=== PATIENT | female | born 1945 | race Caucasian/White ===

== ENCOUNTER 2018-05-28 09:51 | Emergency (ER) | payer MEDICARE, MEDICAID ==
[2018-05-28 10:19] VITALS: BMI 41.8
[2018-05-28 10:24] VITALS: TEMP 98.8; O2SAT 99
[2018-05-28 11:15] VITALS: RESP 18
[2018-05-28] MEDS ORDERED: Oxycodone/Acetaminophen 5/325 mg Tab PO STA (11:16)
--- NOTE | 2018-05-28 11:16 | ED PDOC ---
Arrival/HPI - General Chief Complaint: Hip Pain Time Seen by Provider: 05/28/18 10:19 Historian: Patient - History of Present Illness Narrative History of Present Illness (Text): 05/28/18 11:05 A 73 year old female, whose past medical history includes hypertension, presents to the emergency department complaining of injury s/p fall. Patient reports she was at home hanging up her curtains on a high ladder, and fell off, landing on buttock region, and hit head on nearby chair. States afterwards felt pain to left elbow, left side rib pain, back pain, right hip pain, and left-side neck pain. Patient denies any chest pain, left hip pain, lower extremity pain, or any other complaints at this time. Also, patient mentions she is alelrgic to penicillin. Notes she takes medications for hypertension and abdomen, however is uncertain which specific medications. Past Medical History - Provider Review Nursing Documentation Reviewed: Yes - Infectious Disease Hx of Infectious Diseases: None - Reproductive Menopause: No Family/Social History - Physician Review Nursing Documentation Reviewed: Yes Family/Social History: No Known Family HX Allergies/Home Meds Allergies/Adverse Reactions: Allergies Penicillins Allergy (Verified 05/28/18 10:25) RASH Review of Systems - Physician Review All systems were reviewed & negative as marked: Yes - Review of Systems Cardiovascular: absent: Chest Pain Musculoskeletal: Neck Pain (left side), Other (left elbow side, left-side rib pain, no hip pain, no lower extremity pain). absent: Back Pain Physical Exam - Physical Exam Narrative Physical Exam (Text): Gen: VS reviewed, alert, well developed, well nourished, nontoxic, mild distress. ENT: normal pharynx. Eye: EOMI, PERRL. Neck: no JVD, supple, no adenopathy. No mid cervical spinal tenderness. CV: regular rate, regular rhythm, no rubs, no murmur, no gallops, S1, S2, pulses equal and strong. Pulm: no distress, clear to auscultation, no wheeze, no rhonchi, breath sounds equal, no rales. Abd: soft, nontender, no guarding, no rebound, no rigidity, normal bowel sounds. Mild to moderate left lower anterior ribcage tenderness with no bruising. Ext: no edema. focal area bruising to medial left elbow, moderate tenderness to PSIS area. Skin: good color, no rash, no cyanosis. Psych: responds appropriately to questions, normal affect. Neuro: oriented x 3, CN2-12 intact grossly, motor intact, sensation intact. Head: small lump to left parietal scalp region with no active bleeding. Vital Signs Reviewed: Yes Vital Signs Temp Pulse Resp BP Pulse Ox 05/28/18 10:19 98.8 F 86 20 151/89 H 99 Temperature: Afebrile Blood Pressure: Normal Pulse: Regular Respiratory Rate: Normal Appearance: Positive for: Well-Appearing, Non-Toxic, Comfortable Pain Distress: None Mental Status: Positive for: Alert and Oriented X 3 Medical Decision Making ED Course and Treatment: 05/28/18 11:09 Impression: 73 year old female with injuries s/p fall. Plan: -- Head CT -- Lumbar Spinal CT -- Left Elbow X-Ray -- Right Femur X-Ray -- Right Hip X-Ray -- Left Rib X-Ray -- Percocet -- Reassess and disposition Progress Notes: 05/28/18 13:35 patient feels better after analgesic. trauma workup unremarkable and patient stable for discharge. patient will follow up with her pcp. - RAD Interpretation Narrative RAD Interpretations (Text): 05/28/2018 11:[address] IMPRESSION: Normal CT of the Head. Dictator: Melo Blanca MD 05/28/2018 11:[address] IMPRESSION: No fracture. L1-2 central disc herniation. Dictator: Melo Blanca MD - Scribe Statement The provider has reviewed the documentation as recorded by the Julian Shahid Provider Scribe Attestation: All medical record entries made by the Scribe were at my direction and personally dictated by me. I have reviewed the chart and agree that the record accurately reflects my personal performance of the history, physical exam, medical decision making, and the department course for this patient. I have also personally directed, reviewed, and agree with the discharge instructions and disposition. Disposition/Present on Arrival - Present on Arrival Any Indicators Present on Arrival: No History of DVT/PE: No History of Uncontrolled Diabetes: No Urinary Catheter: No History of Decub. Ulcer: No History Surgical Site Infection Following: None - Disposition Have Diagnosis and Disposition been Completed?: Yes Diagnosis: Head injury, Lumbar strain, Multiple contusions Disposition: HOME/ ROUTINE Disposition Time: 13:36 Patient Plan: Discharge Condition: STABLE Discharge Instructions (ExitCare): Closed Head Injury (DC), Contusion (DC), Low Back Pain in Adults Additional Instructions: Return for any new or worsening symptoms. Follow up with your primary care doctor as soon as possible. MICHELLE HERNÁNDEZ, thank you for letting us take care of you today. Your provider was Dr. Torrey Quiroz and you were treated for fall and head injury The emergency medical care you received today was directed at your acute symptoms. If you were prescribed any medication, please fill it and take as directed. It may take several days for your symptoms to resolve. Return to the Emergency Department if your symptoms worsen, do not improve, or if you have any other problems. Please contact your doctor or call one of the physicians/clinics you have been referred to that are listed on the Patient Visit Information form that is included in your discharge packet. Bring any paperwork you were given at discharge with you along with any medications you are taking to your follow up visit. Our treatment cannot replace ongoing medical care by a primary care provider outside of the emergency department. Thank you for allowing the [facility] team to be part of your care today. If you had an X-Ray or CT scan: A Radiologist will review the ED reading if any change in treatment is needed we will contact you. If you had a blood, urine, or wound culture: It will take several days for the results, if any change in treatment is needed we will contact you. If you had an STI test: It will take 48 hours for the results. Please call after 1 week if you have not heard back. Prescriptions: Ibuprofen [Motrin Tab] 600 mg PO QID #42 tab oxyCODONE/Acetaminophen [Percocet 5/325 mg Tab] 1 ea PO QID 2 Days #8 tab Sennosides/Docusate Sodium [Colace 2-in-1 Tablet] 2 each PO BID 7 Days #14 tablet Forms: [employer] [facility] (Palestinian)
--- NOTE | 2018-05-28 11:38 | CT ---
Date of service: 05/28/2018 PROCEDURE: CT HEAD WITHOUT CONTRAST. HISTORY: fall, injury COMPARISON: None available. TECHNIQUE: Axial computed tomography images were obtained through the head/brain without intravenous contrast. Radiation dose: Total exam DLP = 913.69 mGy-cm. This CT exam was performed using one or more of the following dose reduction techniques: Automated exposure control, adjustment of the mA and/or kV according to patient size, and/or use of iterative reconstruction technique. FINDINGS: HEMORRHAGE: No intracranial hemorrhage. BRAIN: No mass effect or edema. No atrophy or chronic microvascular ischemic changes. VENTRICLES: Unremarkable. No hydrocephalus. CALVARIUM: Unremarkable. PARANASAL SINUSES: Unremarkable as visualized. No significant inflammatory changes. MASTOID AIR CELLS: Unremarkable as visualized. No inflammatory changes. OTHER FINDINGS: None. IMPRESSION: Normal CT of the Head.
--- NOTE | 2018-05-28 11:55 | CT ---
Date of service: 05/28/2018 PROCEDURE: CT Lumbar Spine without contrast HISTORY: injury, include SACRUM/COCCYX COMPARISON: None available. TECHNIQUE: Axial computed tomography images were obtained of the lumbar spine without the use of intravenous contrast. Coronal and sagittal reformatted images were created and reviewed. Radiation dose: Total exam DLP = 745.08 mGy-cm. This CT exam was performed using one or more of the following dose reduction techniques: Automated exposure control, adjustment of the mA and/or kV according to patient size, and/or use of iterative reconstruction technique. FINDINGS: VERTEBRAE: Unremarkable. No fracture. Normal alignment. DISCS/SPINAL CANAL/NEURAL FORAMINA: L1-2: Central disc herniation with thecal sac impingement. L2-3: Unremarkable. L3-4: Unremarkable. L4-5: Unremarkable. L5-S1: Unremarkable. PARASPINAL SOFT TISSUES: Unremarkable. OTHER FINDINGS: Colonic diverticulosis. IMPRESSION: No fracture. L1-2 central disc herniation.
--- NOTE | 2018-05-28 12:28 | RAD ---
PROCEDURE: Right Hip and pelvis radiographs. HISTORY: fall COMPARISON: None. FINDINGS: BONES: Normal. No fracture. JOINTS: Normal. SOFT TISSUES: Normal. OTHER FINDINGS: None. IMPRESSION: Negative study
--- NOTE | 2018-05-28 12:29 | RAD ---
Date of service: 05/28/2018 PROCEDURE: Left ribs HISTORY: fall, injury COMPARISON: TECHNIQUE: Three views FINDINGS: There is no evidence of rib fracture or pneumothorax. IMPRESSION: Negative study
--- NOTE | 2018-05-28 12:30 | RAD ---
Date of service: 05/28/2018 PROCEDURE: Radiographs of the left elbow. HISTORY: injury, focus medial elbow COMPARISON: No prior. FINDINGS: BONES: Normal. No fracture. JOINTS: Normal. No osteoarthritis. SOFT TISSUES: Normal. JOINT EFFUSION: None. OTHER FINDINGS: None IMPRESSION: Unremarkable radiographs of the left elbow.
[2018-05-28 13:59] VITALS: BP 164/82; PULSE 65
== END 2018-05-28 13:54 | disposition home or self-care (01) ==
LOC: ED 09:51
DX: S09.90XA Unspecified injury of head, initial encounter (principal); S39.012A Strain of muscle, fascia and tendon of lower back, initial encounter; S50.02XA Contusion of left elbow, initial encounter; W11.XXXA Fall on and from ladder, initial encounter; Y92.009 Unspecified place in unspecified non-institutional (private) residence as the place of occurrence of the external cause

== ENCOUNTER 2018-09-04 17:22 | Emergency (ER) | payer MEDICARE, MEDICAID ==
[2018-09-04 17:28] VITALS: BMI 26.2
[2018-09-04 17:42] VITALS: RESP 18
[2018-09-04] MEDS ORDERED: Sodium Chloride 0.9% 1,000 ML IV STA (17:44)
--- NOTE | 2018-09-04 17:56 | ED PDOC ---
Arrival/HPI - General Chief Complaint: Cough, Cold, Congestion Time Seen by Provider: 09/04/18 17:30 Historian: Patient - History of Present Illness Narrative History of Present Illness (Text): 09/04/18 17:53 73 year old female, with past medical history of hypertension, presents to the ED for evaluation of fever since 2 days. Patient informs associated productive cough with yellow sputum last night and reports developing nausea and vomiting today, prompting her to present to the ED for medical evaluation. Patient additionally informs generalized myalgias and subjective fever today but denies taking any medication at home. Patient denies any other associated somatic complaints. Patient denies any chest pain, abdominal pain, shortness of breath, headache, dizziness or any other complaints. Patient denies any recent travel or any sick contact. Time/Duration: < week Symptom Onset: Gradual Symptom Course: Unchanged Activities at Onset: Light Context: Home Past Medical History - Provider Review Nursing Documentation Reviewed: Yes - Infectious Disease Hx of Infectious Diseases: None - Cardiac Hx Cardiac Disorders: Yes Hx Hypertension: Yes - Pulmonary Hx Respiratory Disorders: No - Neurological Hx Neurological Disorder: No - HEENT Hx HEENT Disorder: No - Renal Hx Renal Disorder: No - Endocrine/Metabolic Hx Endocrine Disorders: No - Hematological/Oncological Hx Blood Disorders: No - Integumentary Hx Dermatological Disorder: No - Musculoskeletal/Rheumatological Hx Musculoskeletal Disorders: Yes Hx Arthritis: Yes - Gastrointestinal Hx Gastrointestinal Disorders: Yes Hx Gastritis: Yes - Genitourinary/Gynecological Hx Genitourinary Disorders: No - Psychiatric Hx Psychophysiologic Disorder: No Hx Substance Use: No - Surgical History Hx Cholecystectomy: Yes - Anesthesia Hx Anesthesia: Yes Hx Anesthesia Reactions: No Hx Malignant Hyperthermia: No Family/Social History - Physician Review Nursing Documentation Reviewed: Yes Family/Social History: Unknown Family HX Smoking Status: Never Smoked Hx Alcohol Use: No Hx Substance Use: No Allergies/Home Meds Allergies/Adverse Reactions: Allergies Penicillins Allergy (Verified 09/04/18 17:28) RASH Review of Systems - Physician Review All systems were reviewed & negative as marked: Yes - Review of Systems Constitutional: Fevers Respiratory: Cough, Sputum Cardiovascular: absent: Chest Pain Gastrointestinal: Nausea, Vomiting. absent: Abdominal Pain Physical Exam - Physical Exam Narrative Physical Exam (Text): 09/04/18 17:57 Constitutional: No acute distress. Head: Normocephalic. Atraumatic. Eyes: PERRL. ENT: Moist mucous membranes. Neck: Supple. Cardiovascular: Borderline tachycardia. Chest: No tenderness. Respiratory: Clear to auscultation bilaterally. GI: Soft. Nontender. Nondistended. Back: No CVA tenderness. Musculoskeletal: No tenderness or swelling of extremities. Skin: No rash. Warm to touch. Neurologic: Alert, no focal deficit. Vital Signs Reviewed: Yes Vital Signs Temp Pulse Resp BP Pulse Ox 09/04/18 17:42 101 F H 94 H 18 162/65 H 95 Temperature: Febrile Blood Pressure: Hypertensive Pulse: Regular Respiratory Rate: Normal Appearance: Positive for: Well-Appearing, Non-Toxic, Comfortable Pain Distress: None Mental Status: Positive for: Alert and Oriented X 3 Medical Decision Making ED Course and Treatment: 09/04/18 17:58 Impression: 73 year old female presents to the ED for evaluation of subjective fever, productive cough, nausea and vomiting. Plan: -- VBG -- Labs -- Chest X-ray -- IV Fluids -- Toradol -- Tylenol -- Zofran -- Urine Culture -- Influenza AB -- Urinalysis -- Reassess and disposition Prior Visits: Notes and results from previous visits were reviewed. Progress Notes: Influenza positive. Patient in no distress upon discharge. Continue supportive care and tamiflu, f/u PMD, return to ED for worsening pain, fever, dyspnea, vomiting, or any other problem. - RAD Interpretation Radiology Orders: 09/04/18 17:44 CHEST TWO VIEWS (PA/LAT) [RAD] Stat - Medication Orders Current Medication Orders: Sodium Chloride (Sodium Chloride 0.9%) 1,000 mls @ 999 mls/hr IV .Q1H1M STA Stop: 09/04/18 18:44 Discontinued Medications Acetaminophen (Tylenol 325mg Tab) 650 mg PO STAT STA Stop: 09/04/18 17:48 Ketorolac Tromethamine (Toradol) 30 mg IVP STAT STA Stop: 09/04/18 17:45 Ondansetron HCl (Zofran Inj) 8 mg IVP STAT STA Stop: 09/04/18 17:45 - Scribe Statement The provider has reviewed the documentation as recorded by the Scribe Parvez Kuhn. All medical record entries made by the Scribe were at my direction and personally dictated by me. I have reviewed the chart and agree that the record accurately reflects my personal performance of the history, physical exam, medical decision making, and the department course for this patient. I have also personally directed, reviewed, and agree with the discharge instructions and disposition. Disposition/Present on Arrival - Present on Arrival Any Indicators Present on Arrival: No History of DVT/PE: No History of Uncontrolled Diabetes: No Urinary Catheter: No History of Decub. Ulcer: No History Surgical Site Infection Following: None - Disposition Have Diagnosis and Disposition been Completed?: Yes Diagnosis: Influenza Disposition: HOME/ ROUTINE Disposition Time: 19:00 Patient Plan: Discharge Condition: STABLE Discharge Instructions (ExitCare): Flu, Adult (DC) Prescriptions: Ibuprofen [Motrin] 600 mg PO Q6 #25 tab Ondansetron ODT [Zofran ODT] 4 mg PO Q8 #12 odt Oseltamivir Phosphate [Tamiflu] 1 cap PO BID #9 capsule Forms: [employer] (Jordanian)
[2018-09-04 18:20] LABS: BASO # 0.01 K/mm3 (0.0-2.0); BASO % 0.2 % (0.0-3.0); HEMOGLOBIN 12.4 g/dL (12.0-16.0); LYMPH # 0.4 (1.2-3.4); LYMPH % 6.8 % (22.0-35.0); MEAN CELL VOLUME 88.7 fl (80.0-105.0); MEAN CORPUSCULAR HEMOGLOBIN 29.3 pg (25.0-35.0); MEAN CORPUSCULAR HGB CONC 33.1 g/dl (31.0-37.0); MEAN PLATELET VOLUME 9.9 fl (7.0-11.0); MONO # 0.6 (0.1-0.6); MONO % 9.1 % (1.0-6.0); RBC 4.23 10^6/uL (3.5-6.1); RED CELL DISTRIBUTION WIDTH 14.3 % (11.5-14.5); WHITE BLOOD COUNT 6.1 10^3/uL (4.5-11.0)
[2018-09-04 18:23] LABS: VENOUS BLOOD GAS BASE EXCESS 1.3 mmol/L (0.0-2.0); VENOUS BLOOD GAS PO2 43 mm/Hg (30-55); VENOUS BLOOD PH 7.37 (7.32-7.43)
[2018-09-04 18:31] LABS: ALB/GLOB RATIO 1.2 (1.1-1.8); ALBUMIN 4.1 g/dL (3.0-4.8); ALT/SGPT 25 U/L (7-56); AST/SGOT 50 U/L (14-36); BLOOD UREA NITROGEN 17 mg/dL (7-21); CALCIUM 8.8 mg/dL (8.4-10.5); GFR NON-AFRICAN AMERICAN > 60; LIPASE 128 U/L (23-300)
[2018-09-04 19:39] VITALS: BP 138/64; PULSE 97; TEMP 99.1; O2SAT 97
--- NOTE | 2018-09-05 08:57 | RAD ---
Date of service: 09/04/2018 HISTORY: r/o PNA COMPARISON: No prior. TECHNIQUE: Chest PA and lateral FINDINGS: LUNGS: No active pulmonary disease. PLEURA: No significant pleural effusion identified. No pneumothorax apparent. CARDIOVASCULAR: No aortic atherosclerotic calcification present. Normal cardiac size. No pulmonary vascular congestion. OSSEOUS STRUCTURES: No significant abnormalities. VISUALIZED UPPER ABDOMEN: Normal. OTHER FINDINGS: None. IMPRESSION: No active disease.
== END 2018-09-04 19:51 | disposition home or self-care (01) ==
LOC: ED 17:22
DX: J11.1 Influenza due to unidentified influenza virus with other respiratory manifestations (principal); I10 Essential (primary) hypertension
CPT/HCPCS: 71046; 80053; 82803; 83690; 85025; 87804; 96374; 96375; 99283; J1885; J2405; J7030